=== PATIENT | male | born 1980 | race Caucasian/White ===

== ENCOUNTER 2017-06-20 21:58 | Emergency (ER) | payer BC ==
[~2017-06-20] VITALS: Ht 180.3 cm; Wt 88.4 kg
[~2017-06-20 21:58] MED LIST: FAMO1TAB48 PO
[2017-06-20 22:52] VITALS: TEMP 36.9; Ht 180.3 cm; Wt 88.4 kg
[2017-06-20] MEDS ORDERED: XYLOCAINE 1%/SOD BICARB 20 ML VIAL INFIL ONE (23:16)
[2017-06-20] MEDS ORDERED: PRLSR20 PO (23:26)
[2017-06-20 23:45] VITALS: BP 140/88; PULSE 86; O2SAT 97
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
== END 2017-06-20 23:46 | disposition home or self-care (01) ==
LOC: C.EDB 21:59 → C.EDD 23:46
DX: S51.811A Laceration without foreign body of right forearm, initial encounter (principal); W26.0XXA Contact with knife, initial encounter; K21.9 Gastro-esophageal reflux disease without esophagitis